=== PATIENT | male | born 1935 | race Caucasian/White ===

== ENCOUNTER 2019-07-01 15:51 | Inpatient (IN) | payer MEDICARE, OTHER ==
[~2019-07-01] VITALS: Ht 177.8 cm; Wt 110.0 kg
[~2019-07-01 15:51] MED LIST: ASPI-611 PO; CALC-89 PO; CLIN300C12; FINA5TAB3 PO; MULT-1074 PO; OMEP-84 PO; PRAV10TA38 PO; TERA5CAP PO; UBID100C16 PO; [UNRECOGNIZED DRUG - CODE] PO
--- NOTE | 2019-07-01 16:20 | NUR ---
DR. MYRICK AT BEDSIDE.
[2019-07-01 16:37] LABS: BASOPHILS # (AUTO) 0.1 X10'3 (0-0.2); BASOPHILS % (AUTO) 0.8 % (0-1); EOSINOPHILS # (AUTO) 0.1 X10'3 (0-0.9); EOSINOPHILS % (AUTO) 1.3 % (0-6); HEMATOCRIT 42.2 % (42.0-52.0); HEMOGLOBIN 14.3 g/dl (14.0-17.9); LYMPHOCYTES # (AUTO) 1.7 X10'3 (1.1-4.8); LYMPHOCYTES % (AUTO) 20.7 % (21-51); MEAN CORPUSCULAR HEMOGLOBIN 31.5 PG (27.0-31.0); MEAN CORPUSCULAR HGB CONC 33.9 g/dL (33.0-36.5); MEAN CORPUSCULAR VOLUME 93.1 FL (78-98); MEAN PLATELET VOLUME 8.4 FL (7.4-10.4); NEUTROPHILS # (AUTO) 5.2 X10'3 (1.8-7.7); NEUTROPHILS % (AUTO) 65.2 % (42-75); PLATELET COUNT 278 X10'3 (140-440); RED BLOOD COUNT 4.53 X10'6 (4.70-6.10); RED CELL DISTRIBUTION WIDTH 13.1 % (11.5-14.5)
[2019-07-01 16:44] LABS: ALANINE AMINOTRANSFERASE 13 U/L (12-78); ALBUMIN 3.7 G/DL (3.4-5.0); ALBUMIN/GLOBULIN RATIO 0.9 (1.1-1.5); ALKALINE PHOSPHATASE 60 IU/L (46-116); ANION GAP 7 (8-16); ASPARTATE AMINO TRANSFERASE 17 U/L (10-37); BILIRUBIN,TOTAL 0.4 MG/DL (0.1-1.0); BLOOD UREA NITROGEN 18 MG/DL (7-18); BUN/CREATININE RATIO 14.8 (5.4-32.0); CHLORIDE 107 MMOL/L (99-107); CREATININE 1.22 MG/DL (0.60-1.10); GLUCOSE 78 MG/DL (70-104); POTASSIUM 4.1 MMOL/L (3.5-5.1); SODIUM 142 MMOL/L (135-145); TOTAL CARBON DIOXIDE 28.3 MMOL/L (24-32); TOTAL PROTEIN 7.6 G/DL (6.4-8.2); eGFR 57 ML/MIN
[2019-07-01 16:45] LABS: PARTIAL THROMBOPLASTIN TIME 28 SECONDS (22-32)
[2019-07-01 16:48] LABS: TROPONIN I < 0.04 NG/ML (0.0-0.05)
[2019-07-01] MEDS ORDERED: morphine 2 MG/ML inj. syringe IV PRN (17:45)
[2019-07-01] MEDS ORDERED: HYDROcodone/acetaminophen 10/325mg tab PO PRN (17:45)
[2019-07-01] MEDS ORDERED: magnesium 2GM in 50ml NS 50 ML IV PRN (17:45)
[2019-07-01] MEDS ORDERED: magnesium Cl slow-release 64mg tablet PO PRN (17:45)
[2019-07-01] MEDS ORDERED: ondansetron/PF 4mg/2ml inj IV PRN (17:45)
[2019-07-01] MEDS ORDERED: magnesium 4gm in 100ml NS 100 ML IV PRN (17:45)
[2019-07-01] MEDS ORDERED: acetaminophen 325mg tablet PO PRN ×2 (17:45)
[2019-07-01] MEDS ORDERED: potassium CL 10mEq/100ml bag 100 ML IV PRN ×2 (17:45)
[2019-07-01] MEDS ORDERED: HYDROcodone/acetaminophen 5mg/325mg tablet PO PRN (17:45)
[2019-07-01] MEDS ORDERED: potassium Cl 20 mEq SR tablet PO PRN ×2 (17:45)
[2019-07-01 20:01] VITALS: BP 145/73
[2019-07-01] MEDS: normal saline 1000ml 1,000 ML IV SCH (20:39)
[2019-07-01] MEDS: finasteride 5mg tablet PO SCH (20:40)
[2019-07-01] MEDS: docusate sod 100mg capsule PO SCH (20:40)
[2019-07-01] MEDS: heparin, porcine 5000 units/ml vial SQ SCH (20:40)
[2019-07-01] MEDS: terazosin 5mg capsule PO SCH (21:00)
[2019-07-01] MEDS ORDERED: temazepam 15mg capsule PO PRN (21:00)
[2019-07-01 22:00] VITALS: BP 136/73
[2019-07-01 22:03] VITALS: BP 136/73
[2019-07-02] VITALS (7 sets, daily range): BP systolic 120–136; BP diastolic 57–70
[2019-07-02 05:37] LABS: BASOPHILS # (AUTO) 0.1 X10'3 (0-0.2); EOSINOPHILS # (AUTO) 0.2 X10'3 (0-0.9); EOSINOPHILS % (AUTO) 2.6 % (0-6); HEMATOCRIT 36.2 % (42.0-52.0); HEMOGLOBIN 12.6 g/dl (14.0-17.9); LYMPHOCYTES # (AUTO) 1.7 X10'3 (1.1-4.8); MEAN CORPUSCULAR HEMOGLOBIN 32.6 PG (27.0-31.0); MEAN CORPUSCULAR HGB CONC 34.8 g/dL (33.0-36.5); MEAN CORPUSCULAR VOLUME 93.7 FL (78-98); MEAN PLATELET VOLUME 8.2 FL (7.4-10.4); MONOCYTES # (AUTO) 0.6 X10'3 (0-0.9); MONOCYTES % (AUTO) 10.6 % (2-12); NEUTROPHILS # (AUTO) 3.3 X10'3 (1.8-7.7); NEUTROPHILS % (AUTO) 56.8 % (42-75); PLATELET COUNT 219 X10'3 (140-440); RED BLOOD COUNT 3.86 X10'6 (4.70-6.10); RED CELL DISTRIBUTION WIDTH 13.4 % (11.5-14.5); WHITE BLOOD COUNT 5.9 X10'3 (4.5-11.0)
[2019-07-02 06:11] LABS: ALANINE AMINOTRANSFERASE 13 U/L (12-78); ALBUMIN/GLOBULIN RATIO 0.9 (1.1-1.5); ALKALINE PHOSPHATASE 48 IU/L (46-116); ANION GAP 8 (8-16); ASPARTATE AMINO TRANSFERASE 20 U/L (10-37); BILIRUBIN,TOTAL 0.6 MG/DL (0.1-1.0); BLOOD UREA NITROGEN 17 MG/DL (7-18); BUN/CREATININE RATIO 15.9 (5.4-32.0); CALCIUM 8.4 MG/DL (8.5-10.1); CHLORIDE 110 MMOL/L (99-107); CHOL/HDL RATIO 5.8 (0.00-4.99); CHOLESTEROL 175 MG/DL (0-200); CREATININE 1.07 MG/DL (0.60-1.10); GLUCOSE 85 MG/DL (70-104); HDL CHOLESTEROL 30 MG/DL (35-60); LDL CHOLESTEROL 127 MG/DL (50-100); SODIUM 141 MMOL/L (135-145); TOTAL CARBON DIOXIDE 22.6 MMOL/L (24-32); TOTAL PROTEIN 6.2 G/DL (6.4-8.2); TRIGLYCERIDES 112 MG/DL (20-135); eGFR 66 ML/MIN
--- NOTE | 2019-07-02 06:37 | NUR ---
RECEIVED REPORT FROM SHENG ROSSI
[2019-07-02] MEDS: aspirin 81mg tablet.DR PO SCH (07:37)
[2019-07-02] MEDS: docusate sod 100mg capsule PO SCH ×2 (07:37→20:00)
[2019-07-02] MEDS: pantoprazole 40mg Tablet.DR PO SCH (07:37)
[2019-07-02] MEDS: heparin, porcine 5000 units/ml vial SQ SCH ×2 (07:46→20:43)
[2019-07-02] MEDS: K and/or MAG REPLACEMENT MC SCH (08:00)
[2019-07-02] MEDS: atorvastatin 20mg tablet PO SCH (11:04)
[2019-07-02] MEDS: normal saline 1000ml 1,000 ML IV SCH ×2 (13:53→20:43)
[2019-07-02] MEDS: clopidogrel 75mg tablet PO SCH (14:13)
--- NOTE | 2019-07-02 18:00 | NUR ---
RECEIVED PATIENT FROM INGRID ROSSI AND ASSUMED PATIENT CARE
--- NOTE | 2019-07-02 18:20 | NUR ---
GAVE REPORT TO BIRDIE ROSSI
--- NOTE | 2019-07-02 19:09 | NUR ---
[facility] lab cancelled r/t MD Diaz discontinuing IV antibiotics as they are not needed at this time per his note.
[2019-07-02] MEDS: finasteride 5mg tablet PO SCH (20:42)
[2019-07-02] MEDS: terazosin 5mg capsule PO SCH (20:42)
[2019-07-03 02:00] VITALS: BP 126/60
[2019-07-03 06:00] VITALS: BP 99/49
[2019-07-03 06:18] LABS: BASOPHILS % (AUTO) 0.6 % (0-1); EOSINOPHILS # (AUTO) 0.2 X10'3 (0-0.9); EOSINOPHILS % (AUTO) 3.6 % (0-6); HEMOGLOBIN 12.4 g/dl (14.0-17.9); LYMPHOCYTES # (AUTO) 1.5 X10'3 (1.1-4.8); LYMPHOCYTES % (AUTO) 29.1 % (21-51); MEAN CORPUSCULAR HGB CONC 34.4 g/dL (33.0-36.5); MEAN CORPUSCULAR VOLUME 92.9 FL (78-98); MEAN PLATELET VOLUME 8.3 FL (7.4-10.4); MONOCYTES # (AUTO) 0.6 X10'3 (0-0.9); MONOCYTES % (AUTO) 11.8 % (2-12); NEUTROPHILS # (AUTO) 2.8 X10'3 (1.8-7.7); NEUTROPHILS % (AUTO) 54.9 % (42-75); PLATELET COUNT 213 X10'3 (140-440); RED BLOOD COUNT 3.88 X10'6 (4.70-6.10); RED CELL DISTRIBUTION WIDTH 13.3 % (11.5-14.5); WHITE BLOOD COUNT 5.1 X10'3 (4.5-11.0)
--- NOTE | 2019-07-03 06:18 | NUR ---
REPORT GIVEN TO INGRID ROSSI
[2019-07-03] MEDS ORDERED: VANCOMYCIN LEVEL IV ONE (06:30)
[2019-07-03 06:36] LABS: ALANINE AMINOTRANSFERASE 8 U/L (12-78); ALBUMIN 2.8 G/DL (3.4-5.0); ALBUMIN/GLOBULIN RATIO 0.9 (1.1-1.5); ALKALINE PHOSPHATASE 46 IU/L (46-116); ANION GAP 9 (8-16); ASPARTATE AMINO TRANSFERASE 16 U/L (10-37); BILIRUBIN,TOTAL 0.4 MG/DL (0.1-1.0); BLOOD UREA NITROGEN 15 MG/DL (7-18); BUN/CREATININE RATIO 13.9 (5.4-32.0); CHLORIDE 111 MMOL/L (99-107); CREATININE 1.08 MG/DL (0.60-1.10); GLUCOSE 102 MG/DL (70-104); MAGNESIUM 1.9 MG/DL (1.5-2.4); POTASSIUM 3.7 MMOL/L (3.5-5.1); SODIUM 142 MMOL/L (135-145); TOTAL CARBON DIOXIDE 21.7 MMOL/L (24-32); TOTAL PROTEIN 5.9 G/DL (6.4-8.2); eGFR 65 ML/MIN
--- NOTE | 2019-07-03 06:46 | NUR ---
RECEIVED REPORT FROM BIRDIE ROSSI
[2019-07-03] MEDS: K and/or MAG REPLACEMENT MC SCH (07:04)
[2019-07-03] MEDS: atorvastatin 20mg tablet PO SCH (07:45)
[2019-07-03] MEDS: aspirin 81mg tablet.DR PO SCH (07:45)
[2019-07-03] MEDS: clopidogrel 75mg tablet PO SCH (07:46)
[2019-07-03] MEDS: pantoprazole 40mg Tablet.DR PO SCH (07:46)
[2019-07-03] MEDS: heparin, porcine 5000 units/ml vial SQ SCH (07:48)
[2019-07-03] MEDS: docusate sod 100mg capsule PO SCH (07:52)
[2019-07-03 10:00] VITALS: BP 122/60
[2019-07-03] MEDS ORDERED: CLOP75TA35 PO (12:09)
[2019-07-03] MEDS ORDERED: ATOR20TA66 PO (12:09)
== END 2019-07-03 14:00 | disposition home health service (06) | DRG 64 ==
LOC: ER 15:52 → ED HOLD 17:41 → ORTHO 4S 19:23
PROVIDERS: ADMIT Internal Medicine; ATTEND Family Medicine
DX: I63.9 Cerebral infarction, unspecified (principal); N17.0 Acute kidney failure with tubular necrosis; E78.00 Pure hypercholesterolemia, unspecified; K21.9 Gastro-esophageal reflux disease without esophagitis; M54.5 Low back pain; M54.9 Dorsalgia, unspecified; E78.5 Hyperlipidemia, unspecified; G89.29 Other chronic pain; N18.3 Chronic kidney disease, stage 3 (moderate); N40.0 Benign prostatic hyperplasia without lower urinary tract symptoms; Z79.02 Long term (current) use of antithrombotics/antiplatelets; Z79.82 Long term (current) use of aspirin; Z90.49 Acquired absence of other specified parts of digestive tract; Z79.899 Other long term (current) drug therapy
CPT/HCPCS: 36415; 70450; 70544; 70549; 70551; 71045; 72141; 80053; 80061; 82948; 83605; 83735; 84484; 85025; 85610; 85730; 87040; 87081; 93005; 93306; 93880; 96374; 97110; 97116; 97162; 97530; 99285; G0378; J1644; J3370; J7030

== ENCOUNTER 2022-07-04 16:11 | Emergency (ER) | payer MEDICARE ==
[~2022-07-04] VITALS: Ht 177.8 cm; Wt 90.9 kg
[~2022-07-04 16:11] MED LIST changes: +ATOR20TA66 PO; -CLIN300C12; +CLOP75TA34 PO; -PRAV10TA38 PO; -UBID100C16 PO; -[UNRECOGNIZED DRUG - CODE] PO
[2022-07-04 16:50] VITALS: BP 112/60
[2022-07-04 17:28] LABS: BASOPHILS % (AUTO) 0.4 % (0-1); EOSINOPHILS # (AUTO) 0.1 X10'3 (0-0.9); EOSINOPHILS % (AUTO) 0.9 % (0-6); HEMATOCRIT 40.7 % (42.0-52.0); HEMOGLOBIN 13.7 g/dl (14.0-17.9); LYMPHOCYTES # (AUTO) 0.9 X10'3 (1.1-4.8); LYMPHOCYTES % (AUTO) 10.3 % (21-51); MEAN CORPUSCULAR HGB CONC 33.7 g/dL (33.0-36.5); MEAN CORPUSCULAR VOLUME 92.1 FL (78-98); MEAN PLATELET VOLUME 7.9 FL (7.4-10.4); MONOCYTES # (AUTO) 0.5 X10'3 (0-0.9); MONOCYTES % (AUTO) 6.1 % (2-12); NEUTROPHILS # (AUTO) 6.9 X10'3 (1.8-7.7); NEUTROPHILS % (AUTO) 82.3 % (42-75); PLATELET COUNT 249 X10'3 (140-440); RED BLOOD COUNT 4.42 X10'6 (4.70-6.10); RED CELL DISTRIBUTION WIDTH 13.2 % (11.5-14.5); WHITE BLOOD COUNT 8.4 X10'3 (4.5-11.0)
[2022-07-04 17:42] LABS: ALANINE AMINOTRANSFERASE 13 U/L (12-78); ALBUMIN 3.2 G/DL (3.4-5.0); ALBUMIN/GLOBULIN RATIO 0.9 (1.1-1.5); ALKALINE PHOSPHATASE 51 IU/L (46-116); ANION GAP 10 (8-16); ASPARTATE AMINO TRANSFERASE 20 U/L (10-37); BILIRUBIN,TOTAL 0.6 MG/DL (0.1-1.0); BLOOD UREA NITROGEN 19 MG/DL (7-18); CALCIUM 8.8 MG/DL (8.5-10.1); CHLORIDE 108 MMOL/L (99-107); CREATININE 1.19 MG/DL (0.60-1.10); GLUCOSE 123 MG/DL (70-104); POTASSIUM 4.5 MMOL/L (3.5-5.1); SODIUM 142 MMOL/L (135-145); TOTAL CARBON DIOXIDE 23.9 MMOL/L (24-32); TOTAL PROTEIN 6.6 G/DL (6.4-8.2); eGFR 58 ML/MIN
== END 2022-07-04 21:03 | disposition home or self-care (01) ==
LOC: ER 16:11
DX: U07.1 COVID-19 (principal); R53.1 Weakness; R53.83 Other fatigue; E78.00 Pure hypercholesterolemia, unspecified; K21.9 Gastro-esophageal reflux disease without esophagitis; G89.29 Other chronic pain; M54.50 Low back pain, unspecified; Z98.890 Other specified postprocedural states
CPT/HCPCS: 36415; 71045; 80053; 83880; 84484; 85025; 93005; 99285

== ENCOUNTER 2023-03-16 05:42 | Emergency (ER) | payer MEDICARE, OTHER ==
[~2023-03-16] VITALS: Ht 185.4 cm; Wt 88.6 kg
[2023-03-16 05:47] VITALS: TEMP 97.6
[2023-03-16] MEDS ORDERED: HYDROcodone/acetaminophen 10/325mg tab PO ONE (08:20)
[2023-03-16] MEDS ORDERED: morphine 10mg/ml inj. IM ONE (08:20)
[2023-03-16] MEDS ORDERED: ONDA4TAB12 PO (10:19)
[2023-03-16] MEDS ORDERED: HYDR-3973 PO (10:19)
[2023-03-16] MEDS ORDERED: ondansetron 4mg rapidly disintigrating tab PO ONE (10:20)
[2023-03-16 10:38] VITALS: BP 165/76; PULSE 52; RESP 16; O2SAT 98
== END 2023-03-16 11:10 | disposition home or self-care (01) ==
LOC: ER 05:42
DX: S39.012A Strain of muscle, fascia and tendon of lower back, initial encounter (principal); E78.00 Pure hypercholesterolemia, unspecified; K21.9 Gastro-esophageal reflux disease without esophagitis; Z79.82 Long term (current) use of aspirin; Z79.899 Other long term (current) drug therapy; Z98.890 Other specified postprocedural states; X50.3XXA Overexertion from repetitive movements, initial encounter; Y93.89 Activity, other specified; Y92.89 Other specified places as the place of occurrence of the external cause; Y99.8 Other external cause status
CPT/HCPCS: 72100; 96372; 99283; J2274

== ENCOUNTER 2024-04-12 15:53 | Outpatient (CLI) | payer MEDICARE, OTHER ==
[~2024-04-12 15:53] MED LIST changes: +ONDA-243 PO
[2024-04-12 16:24] LABS: ALANINE AMINOTRANSFERASE 11 U/L (12-78); ALBUMIN 3.6 G/DL (3.4-5.0); ALKALINE PHOSPHATASE 51 IU/L (46-116); ANION GAP 7 (8-16); ASPARTATE AMINO TRANSFERASE 13 U/L (10-37); BILIRUBIN,TOTAL 0.3 MG/DL (0.1-1.0); BLOOD UREA NITROGEN 15 MG/DL (7-18); BUN/CREATININE RATIO 14.6 (10.0-20.0); CALCIUM 8.9 MG/DL (8.5-10.1); CHLORIDE 109 MMOL/L (99-107); CHOL/HDL RATIO 3.3 (0.00-4.99); CHOLESTEROL 144 MG/DL (0-200); CREATININE 1.03 MG/DL (0.60-1.10); GLUCOSE 89 MG/DL (70-104); HDL CHOLESTEROL 44 MG/DL (35-60); LDL CHOLESTEROL 87 MG/DL (50-100); POTASSIUM 4.4 MMOL/L (3.5-5.1); SODIUM 143 MMOL/L (135-145); TRIGLYCERIDES 89 MG/DL (20-135); eGFR 68 ML/MIN
[2024-04-12 16:35] LABS: TOTAL PROTEIN 7.2 G/DL (6.4-8.2)
== END 2024-04-12 23:59 | disposition home or self-care (01) ==
LOC: LAB 15:53
PROVIDERS: ATTEND Internal Medicine Interventional Cardiology
DX: E78.5 Hyperlipidemia, unspecified (principal)
CPT/HCPCS: 36415; 80053; 80061

== ENCOUNTER 2025-08-07 10:04 | Emergency (ER) | payer MEDICARE ==
[~2025-08-07] VITALS: Ht 175.3 cm; Wt 97.1 kg
[~2025-08-07 10:04] MED LIST changes: +APIX5TAB5 PO; -ASPI-611 PO; +DONE-53 PO; +HYDR-3965 PO; +ROSU20TA98 PO; +TAMS-55 PO
[2025-08-07 10:29] LABS: MEAN PLATELET VOLUME 7.8 FL (7.4-10.4); RED CELL DISTRIBUTION WIDTH 13.7 % (11.5-14.5)
[2025-08-07 10:42] LABS: CREATININE 1.23 MG/DL (0.60-1.10); ETHANOL < 10 MG/DL (<10); TOTAL CARBON DIOXIDE 25.6 MMOL/L (24-32); eCRCL 42 ML/MIN; eGFR 56 ML/MIN
[2025-08-07 10:45] VITALS: BP 149/46; PULSE 75; RESP 16; TEMP 98.3; O2SAT 95
--- NOTE | 2025-08-07 11:01 | Physician Documentation ---
History of Present Illness ~ Chief Complaint: ETOH Stated Complaint: ETOH ALTERED Time Seen by MD: 10:25 Primary Medical Doctor: n/a HPI 89-year-old male presents to the ED with concerns over a low see. Was living at [facility] which is independent living. The patient does have a reported recent ETOH history .he is a poor historian as he is currently A&O x2. Smell strongly of feces. lab values currently suggests no current EtOH ingestion. Accroding o the patient's son the patient does have a history of TIA, a atrial fibrillation currently takes Eliquis and has been previously prescribed donepezil. patient has a history of being forgetful he reportedly has not been officially diagnosed with dementia. Is responsive to questions but responds yevgeniy ppropriately. His primary complaint is back pain. Able to obtain the patient's last known normal-appearing according to his friend who was at bedside he states that he was normal one week ago Medication Reconciliation Allergies: Coded Allergies: No Known Allergies (Unverified , 08/07/25) Scheduled Apixaban (Eliquis), 1 TAB PO BID, (Reported) Atorvastatin Calcium (Atorvastatin Calcium), 40 MG PO DAILY Calcium/Vit B12/Fa/Pyridoxine (Folic Acid-Vit B6-Vit B12 Tab), 1 TAB PO DAILY, (Reported) Clopidogrel Bisulfate (Clopidogrel), 75 MG PO DAILY Donepezil Hcl (Donepezil Hcl), 5 MG PO HS, (Reported) Finasteride (Proscar), 5 TAB PO QPM, (Reported) Multivitamin (Multi-Vitamin Daily), 1 EACH PO DAILY, (Reported) Omeprazole* (Prilosec*), 20 MG PO DAILY, (Reported) Rosuvastatin Calcium (Rosuvastatin Calcium), 1 TAB PO HS, (Reported) Tamsulosin Hcl* (Flomax*), 1 CAP PO DAILY, (Reported) Terazosin Hcl (Hytrin), 5 MG PO QPM, (Reported) Scheduled PRN Hydrocodone Bit/Acetaminophen 5/325 MG ([place] 5/325 MG), 1-2 TAB PO Q4-6 hours PRN for pain ONDANSETRON ODT 4mg tablet (Ondansetron Odt), 1 TABLET PO Q6H PRN for NAUSEA Past Medical History Past Medical History: High Cholesterol, GERD, BPH, Chronic Back Pain Past Surgical History: appendectomy, other Alcohol Use: None Lives with: Spouse Lives In: Home Review of Systems All Other Systems at this time: Reviewed and Negative ROS As stated above in the HPI, otherwise all systems are reviewed and negative. Physical Exam Vital Signs: Temperature: 98.3, Heart Rate: 75, Respiratory Rate: 16, BP: 149/46, Pulse Oximetry: 95, Weight: 97.100 Physical Exam General: Alert, no apparent distress. HEENT: PERRL, EOMI, no injection, moist mucous membranes. Respiratory: Lungs clear, no respiratory distress. Chest: No accessory muscle use. Cardiovascular: Regular rate and rhythm, no murmurs. Neurologic: Oriented x1 Psychiatric: odd affect Skin: Normal color, warm and dry. No edema, no ecchymosis. Progress Results/Orders Results/Orders Orders - EDSON CASAREZ MORNING NEWS PRODUCER Straight Cath For Urine Sample (08/07/25 10:55) Ct Head (08/07/25 12:46) Completed Orders - EDSON CASAREZ MORNING NEWS PRODUCER Ammonia (08/07/25 10:55) Ct Head (08/07/25 12:46) Electrocardiogram (08/07/25 ) Ua W/Microscopic, Cult If Ind (08/07/25 11:27) Nicardipine-Ns 40mg/200ml Ivpb (Cardene- (08/07/25 13:10) Medications Received in ER Medications (Trade) Dose Ordered Sig/Jim Route PRN Reason Start Time Stop Time Status Last Admin Dose Admin Sterile Water 100 ml/Prothrombin Complex Concent (Human) 100 ml @ 699.12 mls/ hr ONCE ONCE IV 08/07/25 12:40 08/07/25 12:49 DC 08/07/25 13:34 699.12 MLS/HR Vital Signs 08/07/25 08/07/25 08/07/25 10:08 10:45 11:52 Temp 98.3 Pulse 78 75 Resp 18 16 B/P (MAP) 156/82 149/46 (80) Pulse Ox 95 95 Laboratory Tests Test 08/07/25 10:19 08/07/25 11:27 08/07/25 11:46 White Blood Count 11.5 H Red Blood Count 3.84 L Hemoglobin 12.3 L Hematocrit 36.2 L Mean Corpuscular Volume 94.3 Mean Corpuscular Hemoglobin 32.1 H Mean Corpuscular Hemoglobin Concent 34.0 Red Cell Distribution Width 13.7 Platelet Count 200 Mean Platelet Volume 7.8 Neutrophils (%) (Auto) 78.4 H Lymphocytes (%) (Auto) 9.4 L Monocytes (%) (Auto) 11.7 Eosinophils (%) (Auto) 0 Basophils (%) (Auto) 0.5 Neutrophils # (Auto) 9.0 H Lymphocytes # (Auto) 1.1 Monocytes # (Auto) 1.3 H Eosinophils # (Auto) 0.0 Basophils # (Auto) 0.1 CBC Comment Sodium Level 141 Potassium Level 3.7 Chloride Level 108 H Carbon Dioxide Level 25.6 Anion Gap 7 L Blood Urea Nitrogen 19 H Creatinine 1.23 H Estimated GFR/1.73 m2 56 BUN/Creatinine Ratio 15.4 Glucose Level 122 H Calcium Level 8.5 Total Bilirubin 1.2 H Aspartate Amino Transf (AST/SGOT) 57 H Alanine Aminotransferase (ALT/SGPT) 13 Alkaline Phosphatase 41 L Total Protein 6.9 Albumin 3.3 L Globulin 3.6 Albumin/Globulin Ratio 0.9 L Amylase Level 39 Lipase 38 Chemistry Comments Ethyl Alcohol Level < 10 Urine Specimen Description Voided Urine Color Yellow Urine Clarity Slightly cloudy Urine pH 6.0 Urine Specific [place] 1.025 Urine Protein 30 H Urine Glucose (UA) Negative Urine Ketones Negative Urine Occult Blood Small Urine Nitrite Negative Urine Bilirubin Small Urine Urobilinogen 1.0 Urine Leukocyte Esterase Negative Urine RBC 3-10 Urine WBC 0-4 Urine Squamous Epithelial Cells Few Urine Transitional Epithelial Cells Few Urine Bacteria 1+ Urine Hyaline Casts 0-3 Urine Fine Granular Casts 0-3 Urine Mucus Moderate Urine Culture Indicated Not ind Volume Urine Centrifuged 10 ml Urine Comment Ammonia 17 Medical Decision Making Additional information obtaine: old records Findings The patient was scanned via CT for concerns over a LOC. There was notable front al lobe bleed. The patient has been negative for EtOH even though he has the history of alcohol abuse. The last known normal is unavailable at this time. will we be requesting transfer to [facility] for higher level of care. To Dr. Dodd the radiologist the patient has a left frontal intraparenchymal hemorrhage with some blood in the ventricles as well. Remains stable but we will be requesting emergent transfer to higher level of care I spoke to Dr. [facility] who graciously accepted patient starting him on a nicardipine three mass requested and will transport emergently Differential Dx:Considerations: Include: dehydration, Delirium Tr., DKA, encephalopathy, hypercalcemia, HHNC, hypoglycemia, hypernatremia, hyponatremia, hypoxia, postictal, closed head injury, C-spine injury, CVA, mass lesion, subarachnoid hemorrhage, drug overdose, encephalopathy, ETOH intoxication, medication toxicity, infection - meningitis, infection - sepsis, infection - UTI, heart failure, renal failure, respiratory failure, hyperthermia, hypothermia, other Departure Disposition: 02 SHORT TERM HOSPITAL Impression: Primary Impression: Intraparenchymal hematoma of brain Referrals: NO PRIMARY CARE PROVIDER (PCP) Critical Care Note Total Time (mins): 30 Critical Care Note The very real possibility of a deterioration of this patient's condition req uired the highest level of my preparedness for sudden, emergent intervention. I provided critical care services, which included medication orders, frequent reevaluations of the patient's condition and response to treatment, ordering and reviewing test results, and discussing the case with various consultants. Excludes time spent performing separately billable procedures. The critical care time associated with the care of the patient was. Signature Scribe Signature: g Attestation: Scribed for Edson Casarez Senior Analytic Consultant by Edson Shelton NP . 08/07/25 11:00 EDSON CASAREZ NP Aug 07, 2025 11:01
--- NOTE | 2025-08-07 11:42 | ELECTROCARDIOGRAPH REPORT ---
[facility] Test Date: 2025-08-07 Test Time: 11:41:22 Pat Name: AMOS WREN Department: [facility] Patient ID: [facility]-[id number] Room: Gender: M Press Maintainer: : [phone] Requested By: YESSICA IYER Order Number: [id number] Reading MD: Dr. Cody Mansfield Measurements Intervals [place] Rate: 80 P: 86 IA: 42 QRS: 60 QRSD: 89 T: 28 QT: 360 QTc: 416 Interpretive Statements Sinus rhythm Short IA interval Electronically Signed On 08-08-2025 21:13:[address] Cody Mansfield Please click the below link to view image of tracing.
[2025-08-07 11:51] LABS: LEUKOCYTE ESTERASE ,URINE NEGATIVE (Neg); OCCULT BLOOD,URINE SMALL (Neg)
[2025-08-07 11:56] LABS: UA COLLECTION TYPE VOIDED
[2025-08-07 11:57] LABS: NITRITES, URINE NEGATIVE (Neg)
[2025-08-07 11:58] LABS: FINE GRANULAR CAST 0-3 /LPF (NEGATIVE); MUCUS STRANDS MODERATE /LPF (Neg); SQUAMOUS EPITHELIAL CELL,UR FEW /LPF (FEW)
[2025-08-07 11:59] LABS: HYALINE CASTS 0-3 /LPF (NEGATIVE)
--- NOTE | 2025-08-07 12:50 | RADIOLOGY REPORT ---
EXAM: CT CT HEAD INDICATION: aloc TECHNIQUE: CT of the head without intravenous contrast. Coronal and sagittal reformatted images are submitted. Radiation Dose : 1. Head: CT Dose: CTDI volume is 67.0 mGy. Dose-length product is 1126.3 mGy*cm The dose indicators for CT are the volume Computed Tomography (CT) Dose Index (CTDIvol) and the Dose Length Product (DLP), and are measured in units of mGy and mGy-cm, respectively. These indicators are not patient dose, but values generated from the CT scanner acquisition factors. The report includes radiation exposure data for exposures received during this examination. All CT scans at this medical facility are performed using dose modulation techniques as appropriate to a performed exam including the following: Automated exposure control was utilized; adjustment of the MA and/or KV according to patient size; and use of iterative reconstruction technique. COMPARISON: CT STROKE ALERT on DOS: 07/01/19 FINDINGS: There is no evidence of acute intracranial hemorrhage, extra-axial collection, mass effect, midline shift, herniation or hydrocephalus. There is a hyperdensity in the parasagittal left frontal lobe measuring 4.3 by 2.4 by 2.1 cm with adjacent edema. No midline shift. No herniation. There is effacement of the frontal horn of the left lateral ventricle. No hydrocephalus. There are periventricular and subcortical hypodensities, nonspecific, but likely reflecting sequelae of chronic microvascular ischemic changes. The stone-white differentiation is intact. The visualized paranasal sinuses and mastoid air cells are clear. No depressed calvarial fracture. The surrounding soft tissues are unremarkable. IMPRESSION: 1. 4.3 cm frontal lobe acute intraparenchymal hematoma. No midline shift. Effacement of the left lateral ventricle. No hydrocephalus.
[2025-08-07] MEDS ORDERED: niCARDipine-NS 40mg/200ml IVPB 200 ML IV SCH (13:10)
[2025-08-07] MEDS: water for injection, sterile 100 ML in HUM PROTHROMB CPLX-LANS 2,500 UNIT IV ONE (13:34)
== END 2025-08-07 14:56 | disposition short-term general hospital (02) ==
LOC: ER 10:06
DX: I61.9 Nontraumatic intracerebral hemorrhage, unspecified (principal); K21.9 Gastro-esophageal reflux disease without esophagitis; I48.91 Unspecified atrial fibrillation; G89.29 Other chronic pain; E78.00 Pure hypercholesterolemia, unspecified; Z86.73 Personal history of transient ischemic attack (TIA), and cerebral infarction without residual deficits; Z90.49 Acquired absence of other specified parts of digestive tract; Z79.899 Other long term (current) drug therapy
CPT/HCPCS: 36415; 70450; 80053; 80320; 81001; 82140; 82150; 83690; 85025; 93005; 96374; 99291; J7168